=== PATIENT | female | born 2000 | race Caucasian/White ===

== ENCOUNTER 2020-11-16 09:39 | Emergency (ER) | payer MEDICAID, SELFPAY ==
[2020-11-16 10:01] VITALS: BP 113/68; PULSE 106; RESP 20; TEMP 37.1; O2SAT 98; BMI 25.7
--- NOTE | 2020-11-16 10:13 | ED_ITS ---
HPI - Ear Problem General Chief complaint: Ear Problems Stated complaint: EAR ISSUE Time Seen by Provider: 11/16/20 10:13 Source: patient Mode of arrival: ambulatory Limitations: no limitations History of Present Illness MD Complaint: ear pain Location: left ear Duration: constant Severity: mild Relieving factors: nothing Exacerbating factors: nothing Discharge from ear: no Associated symptoms ear: other (No recent illness, fever history of recurrent otitis externa) Treatment prior to arrival: none Related Data Previous Rx's Medication Instructions Recorded [id number] 4 drp OTIC (EARS) Q6H 10 Days #10 11/16/20 ml Allergies Allergy/AdvReac Type Severity Reaction Status Date / Time No Known Allergies Allergy Unverified 05/14/20 17:19 Review of Systems Review of Systems: Constitutional: No Weight loss, No Fever, No Chills, No Night Sweats, No Fatigue, No Malaise ENT/Mouth: No Hearing loss, + Ear Pain, No Nasal Congestion, No Sinus Pain, No Hoarseness, No sore throat, No Rhinorrhea, No Swallowing Difficulty Eyes: No Eye Pain, No Swelling, No Redness, No Foreign Body, No Discharge, No Vision Changes Cardiovascular: N negative Respiratory: No Cough, No Sputum, No Wheezing, No Smoke Exposure, No Dyspnea Gastrointestinal: Negative Genitourinary: Negative Musculoskeletal: No joint pain, No Myalgias, No Joint Swelling Skin: No Skin Lesions, No rash Neuro: No Weakness, No Numbness, No Paresthesias, No Loss of Consciousness, No Dizziness, No Headache Psych: Negative Heme/Lymph: Negative Endocrine: Negative Yes all other systems are reviewed and are negative PMFSH Past Medical History Medical History No known health problems Social History Social History Advance Directives: No Advance Directives Information Provided: No Physical Exam Vital Signs: Vital Signs: Last Vital Signs Temp 98.7 F 11/16/20 10:01 Pulse 106 H 11/16/20 10:01 Resp 20 11/16/20 10:01 BP 113/68 11/16/20 10:01 Pulse Ox 98 11/16/20 10:01 Body Mass Index 25.7 Reviewed Const: General: cooperative and healthy appearing; No acute distress or intoxicated appearing Nutritional Appearance: average body habitus Orientation/consciousness: patient oriented x3 HENMT: Head: Yes normal to inspection Ears: external ears normal, mastoids normal, no periauricular adenopathy and Abnormal EAC present edema (Very mild) on the left General nose exam: Normal external nose present Face and sinus: Yes normal facial exam Eyes: General: appearance normal, both eyes and all related structures Visual Smith: normal visual smith by confrontation Chest: Chest palpation & inspection: normal inspection of the chest Resp: Effort & Inspection: normal respiratory effort Neuro: General: patient oriented x3 Extrem: General: Yes normal to inspection Discharge Plan Discharge Clinical Impression: Otitis externa Qualifiers: Otitis externa type: diffuse Chronicity: acute Laterality: left Qualified Code(s): H60.312 - Diffuse otitis externa, left ear Patient Disposition: Home, Self-Care Instructions: Otitis Externa (ED) Additional Instructions: Use ear drops as prescribed No swimming or bathtubs or installing any water or Q-tips into the ear for the next 2 weeks Follow-up with your primary care doctor as discussed Return if any concerns or worsening symptoms Thank you Prescriptions: New [id number]-[id number]-LB 3.5-10,000-1 mg/mL-unit/mL-% drops,suspension 4 drp otic (ears) Q6H 10 Days Qty: 10 RF: 1 Referrals: [facility] [Primary Care Provider] - 1 week
== END 2020-11-16 10:32 | disposition home or self-care (01) ==
PROVIDERS: Emergency Provider Emergency Medicine
DX: H60.312 Diffuse otitis externa, left ear (principal); F12.90 Cannabis use, unspecified, uncomplicated
CPT/HCPCS: 99283